=== PATIENT | male | born 1985 | race Hispanic/Latino ===

== ENCOUNTER 2017-10-29 21:17 | Inpatient (IN) | payer SELFPAY ==
[~2017-10-29] VITALS: Ht 175.3 cm; Wt 88.9 kg
[2017-10-29] MEDS ORDERED: DIATRIZOATE MEGL/DIATRIZOA SOD 30 ML BTL PO ONE (22:05)
[2017-10-29 22:27] LABS: BASOPHILS # (AUTO) 0.1 (0.0-0.1); BASOPHILS % 0.3 % (0.0-1.0); EOSINOPHILS % 0.1 % (0.0-6.0); HEMATOCRIT 37.7 % (38.2-49.6); HEMOGLOBIN 12.2 g/dL (14.0-18.0); LYMPHOCYTES # (AUTO) 1.6 (1.0-3.2); MEAN CORPUSCULAR HEMOGLOBIN 25.6 pg (28-32); MEAN CORPUSCULAR HGB CONC 32.4 g/dL (31-35); MEAN CORPUSCULAR VOLUME 79.2 fL (81-99); MONOCYTES # (AUTO) 0.9 (0.2-0.8); MONOCYTES % 5.1 % (4.4-11.3); NEUTROPHILS # (AUTO) 14.9 (2.1-6.9); PLATELET COUNT 410 x10e3/uL (140-360); RED BLOOD COUNT 4.76 x10e6/uL (4.3-5.7); RED CELL DISTRIBUTION WIDTH 13.7 % (11.7-14.4)
[2017-10-29 22:39] LABS: CLARITY,URINE CLOUDY (CLEAR); COLOR,URINE YELLOW (YELLOW); LEUKOCYTE ESTERASE ,URINE TRACE (NEGATIVE); NITRITE,URINE NEGATIVE (NEGATIVE); PROTEIN,URINE DIPSTICK 2+ (NEGATIVE)
[2017-10-29 22:40] LABS: BILIRUBIN,URINE NEGATIVE (NEGATIVE); KETONES,URINE NEGATIVE (NEGATIVE); URINE UROBILINOGEN 0.2 mg/dL (0.2 - 1)
[2017-10-29] MEDS ORDERED: ONDANSETRON HCL INJ 2 MG/ML VIAL IV STA (22:46)
[2017-10-29 22:51] LABS: RBC,URINE 0-5 /HPF (0-5); WBC,URINE (MAN) >50 /HPF (0-5)
[2017-10-29 22:52] LABS: BACTERIA,URINE RARE /HPF; EPITHELIAL CELLS,URINE RARE /LPF
[2017-10-29 22:54] LABS: ALANINE AMINOTRANSFERASE 7 IU/L (0-55); ALBUMIN 3.3 g/dL (3.5-5.0); ALBUMIN/GLOBULIN RATIO 0.7 (0.8-2.0); ALKALINE PHOSPHATASE 66 IU/L (40-150); AMYLASE 41 U/L (25-125); ANION GAP 14.3 mmol/L (8-16); BLOOD UREA NITROGEN 9 mg/dL (7-26); BUN/CREATININE RATIO 12 (6-25); CALCIUM 9.6 mg/dL (8.4-10.2); CARBON DIOXIDE 26 mmol/L (22-29); CHLORIDE 101 mmol/L (98-107); CREATININE, SERUM 0.78 mg/dL (0.72-1.25); EST GLOMERULAR FILTRATION RATE > 60 ML/MIN (60-); GLUCOSE 121 mg/dL (74-118); LIPASE < 4 U/L (8-78); POTASSIUM 3.3 mmol/L (3.5-5.1); SODIUM 138 mmol/L (136-145)
[2017-10-29] MEDS ORDERED: SODIUM CHLORIDE 0.9% 50ML 50 ML ONE (23:16)
[2017-10-29] MEDS ORDERED: IOPAMIDOL 370 MG/ML 200 ML INFUS..BTL INJ ONE (23:17)
[2017-10-29] MEDS ORDERED: KETOROLAC TROMETHAMINE 30 MG/ML VIAL IV STA (23:49)
--- NOTE | 2017-10-30 00:08 | Diagnostic Imaging Report ---
EXAM: CT ABDOMEN AND PELVIS with IV CONTRAST DATE: 10/29/2017 10:00 PM Time stamp on Exam: 2330 hours INDICATION: Left lower quadrant pain COMPARISON: CT of the abdomen and pelvis September 04, 2016 TECHNIQUE: The abdomen and pelvis were scanned using a multidetector helical scanner. Coronal and sagittal reformations were obtained. Routine protocol performed. IV Contrast: 100 cc Isovue-370 Oral Contrast: Gastrografin CTDIvol has been reviewed. It is below the limits set by the Radiation Protocol Committee (RPC). FINDINGS: LOWER THORAX: No consolidations LIVER: No masses BILIARY: The gallbladder is unremarkable. No ductal dilation. SPLEEN: No masses PANCREAS: No masses ADRENALS: No nodules KIDNEYS: Symmetric perfusion. No enhancing masses. No hydronephrosis. GI TRACT: Diffuse irregular wall thickening of the mid to distal descending colon and proximal sigmoid colon. Diffuse surrounding inflammation. These findings have worsened since the last CT. There is no free air, however there is a fistulous communication with the left transverse abdominis muscle. There is also a fistulous connection with the dome of the bladder. VESSELS: Unremarkable PERITONEUM/RETROPERITONEUM: Small amount of free fluid around the left colon and in the pelvis. LYMPH NODES: Subcentimeter left pericolonic lymph nodes. REPRODUCTIVE ORGANS: Unremarkable BLADDER: Abnormal thickening and inflammation of the bladder dome with punctate focus of air within the bladder. BONES: No suspicious bone lesions. IMPRESSION: Severe diverticulitis involving the descending and sigmoid colon, progressed since prior exam. At the site of a prior contained perforation of the mid descending colon, there is an irregular abscess that has formed a fistulous connection with the left transverse abdominis muscle. There is also a colovesical fistula involving the bladder dome. Signed by: Dr. Norah Marti M.D. on 10/30/2017 12:05 AM
[2017-10-30] MEDS: METRONIDAZOLE 500MG/NS 100ML 100 ML IV SCH ×5 (00:46→23:27)
[2017-10-30] MEDS ORDERED: KCL 20MEQ/.9 SOD CHL 1,000 ML IV ONE (01:00)
[2017-10-30] MEDS ORDERED: LEVOFLOXACIN 500MG/D5W 100ML 100 ML IV SCH (01:00)
[2017-10-30] MEDS: PIPER-TAZ 3.375 GM 50 ML IV SCH ×4 (02:19→21:00)
[2017-10-30 08:30] VITALS: BP 152/92
[2017-10-30] MEDS ORDERED: BENICAR20 MG PO (08:45)
[2017-10-30 09:00] VITALS: BP 152/92
[2017-10-30] MEDS: ONDANSETRON HCL INJ 2 MG/ML VIAL IV PRN ×2 (09:43→20:33)
[2017-10-30] MEDS: MORPHINE SULFATE 2 MG/ML SYR IV PRN ×2 (09:43→20:33)
[2017-10-30 12:00] VITALS: BP 145/80
[2017-10-30 16:27] VITALS: BP 143/85
--- NOTE | 2017-10-30 17:40 | History and Physical ---
CHIEF COMPLAINT: Abdominal pain and possible colovesical fistula and perforated diverticulitis. HISTORY OF PRESENT ILLNESS: Patient is a 32-year-old male who has diverticular disease for the past 12 years or so. The patient just recently, approximately 5 to 6 weeks ago, was hospitalized at [facility]. At that time he had diverticulitis and was given antibiotics. Patient questionably whether he has a perforation or not at the time, and the patient did not know but he came in this time here for the 1st time with severe diverticulitis involving the descending and the sigmoid colon, progressive. It is also at the site of prior contained perforation of the mid descending colon, and there is an irregular abscess that formed a fistulous connection with the left transverse abdominus muscle. There is also a colovesical fistula involving the urinary bladder dome. The patient is otherwise stable at this time. He did not have any high-grade fever. The T-max was 99.1. Blood pressure stable. White cell count 17.5 thousand. The patient is admitted and antibiotics given. Consultation with the surgeon nurse infection control, Dr. Tomás Salcedo. PAST MEDICAL HISTORY: Diverticular disease with previous perforation. SOCIAL HISTORY: The patient does not smoke or use alcohol. No recreational drug use. ALLERGIES: TO NO KNOWN ALLERGY. HOME MEDICATIONS: None. PHYSICAL EXAMINATION: VITAL SIGNS: Temperature, T-max 99. Blood pressure 127/70. Pulse rate is 57. Respiration . GENERAL: The patient is in no acute distress. He is awake. HEENT: Normocephalic, atraumatic, anicteric. NECK: Supple grossly. PULMONARY: Clear. CARDIOVASCULAR: Regular rate and rhythm. ABDOMEN: Tenderness with some guarding. EXTREMITIES: No cyanosis or edema. NEUROLOGIC: No focal deficit. LABORATORY: Sodium is 138, potassium 3.3, chloride 101, bicarb 26, BUN 9, creatinine 0.8, glucose is 121. Amylase and lipase normal. WBC is 17.5. Hemoglobin 12.2. Hematocrit 37.7. Platelets are 410. CT SCAN OF ABDOMEN AND PELVIS: As mentioned above. A perforated diverticulitis involving descending and the sigmoid colon. There is also a possible colovesicular fistula involving the urinary bladder dome. IMPRESSION: 1. Acute on chronic diverticulitis associated with a perforation contained area in the descending colon associated with now a colovesicular fistula involving the urinary bladder. 2. Leukocytosis. 3. Abdominal pain. PLAN: Continue with IV antibiotics, IV fluids, medication. Will monitor the patient closely. Continue with the management, and we will follow up with Dr. Tomás Salcedo's recommendations. Job#: [id number] EV
[2017-10-30] MEDS: OLMESARTAN 20 MG TAB PO SCH (17:43)
[2017-10-30] MEDS: POTASSIUM CHLORIDE 40 MEQ in DEXTROSE 5%/0.45% SOD CHL 1,000 ML IV SCH (18:04)
[2017-10-30 20:00] VITALS: BP 153/85
[2017-10-30 20:34] VITALS: BP 153/85
[2017-10-30] MEDS: HYDROCODONE/APAP 7.5MG-325MG 1 EA TAB PO PRN (22:05)
[2017-10-31] VITALS (8 sets, daily range): BP systolic 121–139; BP diastolic 72–92
[2017-10-31] MEDS: POTASSIUM CHLORIDE 40 MEQ in DEXTROSE 5%/0.45% SOD CHL 1,000 ML IV SCH ×2 (04:12→10:00)
[2017-10-31] MEDS: METRONIDAZOLE 500MG/NS 100ML 100 ML IV SCH ×3 (05:20→18:02)
[2017-10-31 05:31] LABS: BASOPHILS % 0.2 % (0.0-1.0); EOSINOPHILS # (AUTO) 0.1 (0.0-0.4); EOSINOPHILS % 0.5 % (0.0-6.0); HEMATOCRIT 33.1 % (38.2-49.6); HEMOGLOBIN 10.5 g/dL (14.0-18.0); LYMPHOCYTES # (AUTO) 1.2 (1.0-3.2); LYMPHOCYTES % 10.9 % (18.0-39.1); MEAN CORPUSCULAR HEMOGLOBIN 25.7 pg (28-32); MEAN CORPUSCULAR HGB CONC 31.7 g/dL (31-35); MEAN CORPUSCULAR VOLUME 80.9 fL (81-99); MONOCYTES # (AUTO) 1.1 (0.2-0.8); MONOCYTES % 9.8 % (4.4-11.3); NEUTROPHILS # (AUTO) 8.5 (2.1-6.9); PLATELET COUNT 268 x10e3/uL (140-360); RED BLOOD COUNT 4.09 x10e6/uL (4.3-5.7)
[2017-10-31 05:54] LABS: ALANINE AMINOTRANSFERASE 6 IU/L (0-55); ALBUMIN 2.6 g/dL (3.5-5.0); ALBUMIN/GLOBULIN RATIO 0.6 (0.8-2.0); ALKALINE PHOSPHATASE 56 IU/L (40-150); ANION GAP 12.5 mmol/L (8-16); BLOOD UREA NITROGEN 9 mg/dL (7-26); BUN/CREATININE RATIO 11 (6-25); CALCIUM 8.9 mg/dL (8.4-10.2); CARBON DIOXIDE 27 mmol/L (22-29); CHLORIDE 103 mmol/L (98-107); CREATININE, SERUM 0.82 mg/dL (0.72-1.25); EST GLOMERULAR FILTRATION RATE > 60 ML/MIN (60-); GLUCOSE 112 mg/dL (74-118); POTASSIUM 3.5 mmol/L (3.5-5.1); SODIUM 139 mmol/L (136-145)
[2017-10-31] MEDS: PIPER-TAZ 3.375 GM 50 ML IV SCH ×3 (06:48→22:17)
[2017-10-31] MEDS: HYDROCODONE/APAP 7.5MG-325MG 1 EA TAB PO PRN ×2 (06:48→18:02)
[2017-10-31] MEDS: OLMESARTAN 20 MG TAB PO SCH (09:00)
[2017-10-31] MEDS: MORPHINE SULFATE INJ 4 MG/ML INJ IV PRN (12:03)
[2017-11-01] VITALS (8 sets, daily range): BP systolic 137–157; BP diastolic 89–100
[2017-11-01] MEDS: METRONIDAZOLE 500MG/NS 100ML 100 ML IV SCH ×4 (00:10→17:07)
[2017-11-01] MEDS: POTASSIUM CHLORIDE 40 MEQ in DEXTROSE 5%/0.45% SOD CHL 1,000 ML IV SCH ×2 (01:57→16:08)
[2017-11-01] MEDS: PIPER-TAZ 3.375 GM 50 ML IV SCH ×3 (05:18→21:56)
[2017-11-01 05:32] LABS: BASOPHILS % 0.4 % (0.0-1.0); EOSINOPHILS # (AUTO) 0.1 (0.0-0.4); EOSINOPHILS % 0.8 % (0.0-6.0); HEMATOCRIT 32.9 % (38.2-49.6); HEMOGLOBIN 10.4 g/dL (14.0-18.0); LYMPHOCYTES # (AUTO) 1.3 (1.0-3.2); LYMPHOCYTES % 16.8 % (18.0-39.1); MEAN CORPUSCULAR HEMOGLOBIN 25.8 pg (28-32); MEAN CORPUSCULAR HGB CONC 31.6 g/dL (31-35); MEAN CORPUSCULAR VOLUME 81.6 fL (81-99); MONOCYTES # (AUTO) 0.6 (0.2-0.8); MONOCYTES % 8.1 % (4.4-11.3); NEUTROPHILS # (AUTO) 5.7 (2.1-6.9); NEUTROPHILS % 73.3 % (38.7-80.0); PLATELET COUNT 269 x10e3/uL (140-360); RED BLOOD COUNT 4.03 x10e6/uL (4.3-5.7)
[2017-11-01 05:57] LABS: ANION GAP 14.8 mmol/L (8-16); BLOOD UREA NITROGEN 6 mg/dL (7-26); BUN/CREATININE RATIO 8 (6-25); CARBON DIOXIDE 23 mmol/L (22-29); CHLORIDE 105 mmol/L (98-107); CREATININE, SERUM 0.72 mg/dL (0.72-1.25); EST GLOMERULAR FILTRATION RATE > 60 ML/MIN (60-); GLUCOSE 90 mg/dL (74-118); POTASSIUM 3.8 mmol/L (3.5-5.1); SODIUM 139 mmol/L (136-145)
[2017-11-01] MEDS: OLMESARTAN 20 MG TAB PO SCH (08:18)
[2017-11-01] MEDS: HYDROCODONE/APAP 7.5MG-325MG 1 EA TAB PO PRN ×2 (13:20→20:14)
[2017-11-02] VITALS (7 sets, daily range): BP systolic 145–171; BP diastolic 78–100
[2017-11-02] MEDS: METRONIDAZOLE 500MG/NS 100ML 100 ML IV SCH ×4 (00:14→16:59)
[2017-11-02] MEDS: PIPER-TAZ 3.375 GM 50 ML IV SCH ×2 (05:06→14:48)
[2017-11-02] MEDS: POTASSIUM CHLORIDE 40 MEQ in DEXTROSE 5%/0.45% SOD CHL 1,000 ML IV SCH (05:06)
[2017-11-02 05:47] LABS: BASOPHILS % 0.4 % (0.0-1.0); EOSINOPHILS # (AUTO) 0.1 (0.0-0.4); EOSINOPHILS % 1.2 % (0.0-6.0); HEMATOCRIT 34.1 % (38.2-49.6); HEMOGLOBIN 10.7 g/dL (14.0-18.0); LYMPHOCYTES # (AUTO) 1.1 (1.0-3.2); LYMPHOCYTES % 14.1 % (18.0-39.1); MEAN CORPUSCULAR HEMOGLOBIN 25.4 pg (28-32); MEAN CORPUSCULAR HGB CONC 31.4 g/dL (31-35); MEAN CORPUSCULAR VOLUME 80.8 fL (81-99); MONOCYTES # (AUTO) 0.6 (0.2-0.8); MONOCYTES % 7.8 % (4.4-11.3); NEUTROPHILS # (AUTO) 5.9 (2.1-6.9); NEUTROPHILS % 75.9 % (38.7-80.0); PLATELET COUNT 354 x10e3/uL (140-360); RED BLOOD COUNT 4.22 x10e6/uL (4.3-5.7)
[2017-11-02] MEDS: OLMESARTAN 20 MG TAB PO SCH (09:20)
[2017-11-02] MEDS: MORPHINE SULFATE INJ 4 MG/ML INJ IV PRN (13:47)
[2017-11-02] MEDS ORDERED: FLAGYL250 MG PO (17:13)
[2017-11-02] MEDS ORDERED: LEVAQUIN500 MG PO (17:13)
[2017-11-02] MEDS ORDERED: NAPROXEN250 MG PO (17:14)
[2017-11-02] MEDS ORDERED: phenergan PO (17:14)
--- NOTE | 2017-11-02 17:50 | Discharge Summary ---
FINAL DIAGNOSIS: Chronic diverticulitis associated with infection, severe diverticulitis. CT scan showed descending colon and sigmoid colon with an area that contained perforation of the mid descending colon and irregular abscess that was forming a fistula connecting the left transverse abdominis muscle and also a colovesical fistula involving the urinary bladder dome. SUMMARY: Patient is a young 32-year-old male who has diverticular disease, severe diverticulitis for many years. The patient has chronic problem. He has been at [facility] and then subsequently discharged home with oral antibiotics. The patient came to [facility] because he was having pain and fever. The finding on the CT scan discussed with the patient at length. The patient absolutely did not want any surgery as per Dr. Tomás Salcedo. For now the patient wants to continue with antibiotics. He will need to have his management with respect to surgical intervention. Today the patient absolutely wanted to go home because he does not want to stay in the hospital. It is his choice, and the patient will be discharged home with 7 days antibiotics, Flagyl, Levaquin. Phenergan as needed for nausea and vomiting and naproxen for pain. The patient will need to follow with his surgeon of choice. Again, this is not the 1st time patient had this problem. He had multiple avenues of having this problem taken care of, and the patient is well aware of the complications that arise. Discussed with the patient as planned already. The patient will be discharged home today per his wishes. Job#: [id number] RADHA
== END 2017-11-02 18:20 | disposition home or self-care (01) | DRG 699 ==
LOC: ER 21:17 → ERHOLD 10-30 00:51 → MED/SURG3 10-30 08:50
PROVIDERS: ADMIT Internal Medicine; ATTEND Internal Medicine
DX: N32.1 Vesicointestinal fistula (principal); K57.20 Diverticulitis of large intestine with perforation and abscess without bleeding; D72.829 Elevated white blood cell count, unspecified
CPT/HCPCS: 36415; 74177; 80048; 80053; 81001; 82150; 83690; 85025; 96361; 99284; J1885; J1956; J2270; J2405; J2543; J3480; Q9967

== ENCOUNTER 2018-01-17 01:52 | Inpatient (IN) | payer SELFPAY ==
[~2018-01-17] VITALS: Ht 175.3 cm; Wt 83.5 kg
[~2018-01-17 01:52] MED LIST: BENICAR20 MG PO; FLAGYL250 MG PO; LEVAQUIN500 MG PO; NAPROXEN250 MG PO; phenergan PO
[2018-01-17] MEDS ORDERED: SODIUM CHLORIDE 0.9% 1000ML 1,000 ML IV STA (01:55)
--- OUTSIDE RECORDS SUMMARY | 2018-01-17 01:55 | XMS REPORT | Clinical Summary ---
Author Author [facility] Organization [facility] Address Unknown Phone Unavailable Care Team Providers Care Stenographer Secretary Name Role Phone PCP Unavailable Allergies No Known Allergies Current Medications Prescription Sig. Disp. Refills Start End Date Status Date traMADol (ULTRAM) 50 mg Take 1 tablet by mouth 30 tablet 0 06/11/19 Active tabletIndications: every 6 hours as needed 13 Diverticulitis for Pain. Olmesartan (BENICAR) 5 mg Take 10 mg by mouth daily Active tabletIndications: high Started August 2017 . blood pressure acetaminophen (TYLENOL) Take 2 tablets by mouth 30 tablet 0 12/02/19 Active 325 mg tabletIndications: every 6 hours as needed 18 Diverticulitis for Pain. traMADol (ULTRAM) 50 mg Take 2 tablets by mouth 30 tablet 0 12/02/19 Active tabletIndications: every 6 hours as needed 18 Diverticulitis for Pain. metroNIDAZOLE (FLAGYL) Take 1 tablet by mouth 3 21 tablet 0 12/02/19 12/10/19 500 mg tabletIndications: times daily for 7 days. 18 18 Diverticulitis ciprofloxacin HCl (CIPRO) Take 1 tablet by mouth 2 20 tablet 0 12/02/19 12/02/19 Discontin 500 mg tabletIndications: times daily for 10 days. 18 18 ued Diverticulitis docusate sodium (COLACE) Take 1 capsule by mouth 10 capsule 0 12/03/19 12/13/19 100 mg daily for 10 days. 18 18 capsuleIndications: Diverticulitis fluconazole (DIFLUCAN) Take 1 tablet by mouth 7 tablet 0 12/02/19 12/10/19 100 mg tabletIndications: daily for 7 days. 18 18 Diverticulitis ciprofloxacin HCl (CIPRO) Take 1 tablet by mouth 2 20 tablet 0 12/02/19 12/13/19 500 mg tabletIndications: times daily for 10 days. 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 Encounters Date Type Specialty Care Team Description 12/02/2017 Pharmacy Visit 11/22/2017 [facility] Oumar Elizondo MD Left lower quadrant pain - Encounter Flora Hernandez MD (Primary Dx); 12/01/2017 Ambrocio Patel MD Colovesical fistula; Diverticulitis after 01/16/2017 Social History Tobacco Use Types Packs/Day Years Used Date Former Smoker Smokeless Tobacco: Never Used Alcohol Use Drinks/Week oz/Week Comments No Sex Assigned at Date Recorded Not on file Last Filed Vital Signs Vital Sign Reading Time Taken Blood Pressure 156/90 12/01/2017 7:00 PM CDT Pulse 98 12/01/2017 7:00 PM CDT Temperature 36.8 C (98.2 F) 12/01/2017 7:00 PM CDT Respiratory Rate 18 12/01/2017 7:00 PM CDT Oxygen Saturation 98% 12/01/2017 7:00 PM CDT Inhaled Oxygen - - Concentration Weight 83.5 kg (184 lb) 11/22/2017 4:33 PM CDT Height 175.3 cm (5' 9") 11/22/2017 4:33 PM CDT Body Mass Index 27.17 11/22/2017 4:33 PM CDT Plan of Treatment Date Type Specialty Care Team Description 01/22/2018 Office Visit General Surgery Oh Nash MD Department of Surgery-[facility] [address] [place] [address] [phone] Kasandra Gutierrez PA [address] [facility] [address] [place] [address] [phone] 02/05/2018 Office Visit Gastroenterology Health Maintenance Due Date Last Done Comments IMM Influenza Seasonal 12/03/2017 Oct to May (>/=19 yrs) Procedures Procedure Name Priority Date/Time Associated Diagnosis Comments GLUCOSE POC Routine 12/01/2017 Results for this 5:11 PM CDT procedure are in the results section. GLUCOSE POC Routine 12/01/2017 Results for this 12:41 PM CDT procedure are in the results section. GLUCOSE POC Routine 12/01/2017 Results for this 8:49 AM CDT procedure are in the results section. GLUCOSE POC Routine 12/01/2017 Results for this 6:40 AM CDT procedure are in the results section. PHOSPHORUS Routine 12/01/2017 Results for this 4:47 AM CDT procedure are in the results section. MAGNESIUM Routine 12/01/2017 Results for this 4:47 AM CDT procedure are in the results section. CBC/DIFF Routine 12/01/2017 Results for this 4:47 AM CDT procedure are in the results section. BASIC METABOLIC PANEL Routine 12/01/2017 Results for this 4:47 AM CDT procedure are in the results section. GLUCOSE POC Routine 12/01/2017 Results for this 12:15 AM CDT procedure are in the results section. GLUCOSE POC Routine 11/30/2017 Results for this 12:07 PM CDT procedure are in the results section. GLUCOSE POC Routine 11/30/2017 Results for this 6:39 AM CDT procedure are in the results section. PHOSPHORUS Routine 11/30/2017 Results for this 5:00 AM CDT procedure are in the results section. MAGNESIUM Routine 11/30/2017 Results for this 5:00 AM CDT procedure are in the results section. CBC/DIFF Routine 11/30/2017 Results for this 5:00 AM CDT procedure are in the results section. BASIC METABOLIC PANEL Routine 11/30/2017 Results for this 5:00 AM CDT procedure are in the results section. GLUCOSE POC Routine 11/30/2017 Results for this 12:52 AM CDT procedure are in the results section. GLUCOSE POC Routine 11/29/2017 Results for this 6:26 PM CDT procedure are in the results section. GLUCOSE POC Routine 11/29/2017 Results for this 12:23 PM CDT procedure are in the results section. GLUCOSE POC Routine 11/29/2017 Results for this 6:34 AM CDT procedure are in the results section. PREALBUMIN Routine 11/29/2017 Results for this 4:50 AM CDT procedure are in the results section. PHOSPHORUS Routine 11/29/2017 Results for this 4:50 AM CDT procedure are in the results section. MAGNESIUM Routine 11/29/2017 Results for this 4:50 AM CDT procedure are in the results section. CBC/DIFF Routine 11/29/2017 Results for this 4:50 AM CDT procedure are in the results section. BASIC METABOLIC PANEL Routine 11/29/2017 Results for this 4:50 AM CDT procedure are in the results section. GLUCOSE POC Routine 11/29/2017 Results for this 12:45 AM CDT procedure are in the results section. GLUCOSE POC Routine 11/28/2017 Results for this 6:02 PM CDT procedure are in the results section. GLUCOSE POC Routine 11/28/2017 Results for this 12:16 PM CDT procedure are in the results section. GLUCOSE POC Routine 11/28/2017 Results for this 5:23 AM CDT procedure are in the results section. PHOSPHORUS Routine 11/28/2017 Results for this 3:15 AM CDT procedure are in the results section. MAGNESIUM Routine 11/28/2017 Results for this 3:15 AM CDT procedure are in the results section. CBC/DIFF Routine 11/28/2017 Results for this 3:15 AM CDT procedure are in the results section. BASIC METABOLIC PANEL Routine 11/28/2017 Results for this 3:15 AM CDT procedure are in the results section. GLUCOSE POC Routine 11/27/2017 Results for this 11:12 PM CDT procedure are in the results section. GLUCOSE POC Routine 11/27/2017 Results for this 4:55 PM CDT procedure are in the results section. GLUCOSE POC Routine 11/27/2017 Results for this 12:30 PM CDT procedure are in the results section. GLUCOSE POC Routine 11/27/2017 Results for this 5:58 AM CDT procedure are in the results section. PHOSPHORUS Routine 11/27/2017 Results for this 3:30 AM CDT procedure are in the results section. MAGNESIUM Routine 11/27/2017 Results for this 3:30 AM CDT procedure are in the results section. CBC/DIFF Routine 11/27/2017 Results for this 3:30 AM CDT procedure are in the results section. BASIC METABOLIC PANEL Routine 11/27/2017 Results for this 3:30 AM CDT procedure are in the results section. GLUCOSE POC Routine 11/26/2017 Results for this 11:41 PM CDT procedure are in the results section. GLUCOSE POC Routine 11/26/2017 Results for this 5:39 PM CDT procedure are in the results section. GLUCOSE POC Routine 11/26/2017 Results for this 12:36 PM CDT procedure are in the results section. GLUCOSE POC Routine 11/26/2017 Results for this 6:06 AM CDT procedure are in the results section. PREALBUMIN Routine 11/26/2017 Results for this 4:20 AM CDT procedure are in the results section. PHOSPHORUS Routine 11/26/2017 Results for this 4:20 AM CDT procedure are in the results section. MAGNESIUM Routine 11/26/2017 Results for this 4:20 AM CDT procedure are in the results section. CBC/DIFF Routine 11/26/2017 Results for this 4:20 AM CDT procedure are in the results section. BASIC METABOLIC PANEL Routine 11/26/2017 Results for this 4:20 AM CDT procedure are in the results section. GLUCOSE POC Routine 11/25/2017 Results for this 11:59 PM CDT procedure are in the results section. CT ABDOMEN AND PELVIS W SOPHIE 11/25/2017 Colovesical fistula Results for this CONTRAST - ENTEROGRAPHY 7:35 PM CDT procedure are in the results section. GLUCOSE POC Routine 11/25/2017 Results for this 5:17 PM CDT procedure are in the results section. GLUCOSE POC Routine 11/25/2017 Results for this 12:23 PM CDT procedure are in the results section. GLUCOSE POC Routine 11/25/2017 Results for this 6:43 AM CDT procedure are in the results section. PHOSPHORUS Routine 11/25/2017 Results for this 4:20 AM CDT procedure are in the results section. MAGNESIUM Routine 11/25/2017 Results for this 4:20 AM CDT procedure are in the results section. CBC/DIFF Routine 11/25/2017 Results for this 4:20 AM CDT procedure are in the results section. BASIC METABOLIC PANEL Routine 11/25/2017 Results for this 4:20 AM CDT procedure are in the results section. GLUCOSE POC Routine 11/25/2017 Results for this 12:29 AM CDT procedure are in the results section. CELIAC DISEASE Routine 11/24/2017 Results for this 5:35 PM CDT procedure are in the results section. VIT D, 25-HYDROXY Routine 11/24/2017 Results for this 5:35 PM CDT procedure are in the results section. FERRITIN Routine 11/24/2017 Results for this 5:35 PM CDT procedure are in the results section. IRON PROFILE Routine 11/24/2017 Results for this 5:35 PM CDT procedure are in the results section. SED RATE Routine 11/24/2017 Results for this 5:35 PM CDT procedure are in the results section. GLUCOSE POC Routine 11/24/2017 Results for this 5:16 PM CDT procedure are in the results section. PHOSPHORUS STAT 11/24/2017 Results for this 4:25 AM CDT procedure are in the results section. MAGNESIUM STAT 11/24/2017 Results for this 4:25 AM CDT procedure are in the results section. CBC/DIFF STAT 11/24/2017 Results for this 4:25 AM CDT procedure are in the results section. BASIC METABOLIC PANEL STAT 11/24/2017 Results for this 4:25 AM CDT procedure are in the results section. CT ABDOMEN AND PELVIS Routine 11/23/2017 Diverticulitis Results for this CONTRAST 8:41 PM CDT procedure are in the results section. NUTRITION CONSULT STAT 11/23/2017 ASSESSMENT 12:38 PM CDT XRAY ABDOMEN 1 VIEW Routine 11/23/2017 Left lower quadrant pain Results for this 5:24 AM CDT procedure are in the results section. PREALBUMIN Routine 11/23/2017 Results for this 3:20 AM CDT procedure are in the results section. PHOSPHORUS Routine 11/23/2017 Results for this 3:20 AM CDT procedure are in the results section. MAGNESIUM Routine 11/23/2017 Results for this 3:20 AM CDT procedure are in the results section. CBC/DIFF Routine 11/23/2017 Results for this 3:20 AM CDT procedure are in the results section. BASIC METABOLIC PANEL Routine 11/23/2017 Results for this 3:20 AM CDT procedure are in the results section. XRAY ABDOMEN 1 VIEW STAT 11/22/2017 Left lower quadrant pain Results for this 5:30 PM CDT procedure are in the results section. CRP, HIGH SENS STAT 11/22/2017 Results for this 3:40 PM CDT procedure are in the results section. PREALBUMIN STAT 11/22/2017 Results for this 3:40 PM CDT procedure are in the results section. URINE CULTURE STAT 11/22/2017 Results for this 11:31 AM CDT procedure are in the results section. CT ABDOMEN AND PELVIS STAT 11/22/2017 Left lower quadrant pain Results for this CONTRAST 9:49 AM CDT procedure are in the results section. BMP POC Routine 11/21/2017 Results for this 10:26 PM CDT procedure are in the results section. 12 LEAD EKG Routine 11/21/2017 Results for this 10:20 PM CDT procedure are in the results section. HIV-1/HIV-2 ROUTINE STAT 11/21/2017 Results for this SCREENING 10:19 PM CDT procedure are in the results section. UA CHEMISTRIES STAT 11/21/2017 Results for this 10:19 PM CDT procedure are in the results section. LIPASE STAT 11/21/2017 Results for this 10:19 PM CDT procedure are in the results section. LIVER PROFILE STAT 11/21/2017 Results for this 10:19 PM CDT procedure are in the results section. CBC/DIFF STAT 11/21/2017 Results for this 10:19 PM CDT procedure are in the results section. after 01/16/2017 Results * GLUCOSE POC (12/01/2017 5:11 PM) Only the most recent of 29 results within the time period is included. Glucose POC 93 74 - 106 mg/dL BT MAIN-STATION 1 Performing Organization Address [facility] Phone Number MISYS BT MAIN-[facility]ATION 1 * PHOSPHORUS (12/01/2017 4:47 AM) Only the most recent of 9 results within the time period is included. Phosphorus 3.9 2.5 - 5.0 mg/dL BT MAIN-STATION 1 Specimen Blood Performing Organization Address [facility] Phone Number MISYS BT MAIN-STATION 1 * MAGNESIUM (12/01/2017 4:47 AM) Only the most recent of 9 results within the time period is included. Magnesium 1.9 1.9 - 2.7 mg/dL BT MAIN-STATION 1 Specimen Blood Performing Organization Address [facility] Phone Number MISYS BT MAIN-STATION 1 * CBC/DIFF (12/01/2017 4:47 AM) Only the most recent of 10 results within the time period is included. WBC 11.2 4.5 - 12.0 K/uL BT MAIN-STATION 2 RBC 4.22 (L) 4.60 - 6.20 M/uL BT MAIN-STATION 2 Hemoglobin 10.6 (L) 14.0 - 18.0 g/dL BT MAIN-STATION 2 Hematocrit 35.0 (L) 40.0 - 54.0 % BT MAIN-[facility] 2 MCV 83 82 - 92 fL BT MAIN[facility] 2 MCH 25.1 (L) 27.0 - 31.0 pg BT MAIN-[facility]ATION 2 MCHC 30.3 (L) 32.0 - 36.0 g/dL BT MAIN-[facility] 2 RDW 43.2 35.1 - 43.9 fL BT MAIN-[facility] 2 Platelet 432 (H) 150 - 400 K/uL BT MAIN-[facility]ATION 2 Mean Platelet Volume 9.5 9.4 - 12.4 fL BT MAIN-[facility] 2 Percent NRBC 0.0 BT MAIN-[facility]ATION 2 Absolute NRBC 0.00 BT MAIN[facility] 2 Neutrophil 73.8 (H) 34.0 - 67.9 % BT [facility] 2 Lymphocyte 14.8 (L) 21.8 - 50.0 % BT [facility] 2 Monocyte 8.0 5.3 - 12.0 % BT [facility] 2 Eosinophil 1.2 0.8 - 5.0 % BT [facility] 2 Basophil 0.7 0.2 - 1.2 % BT MAIN[facility] 2 Pct Immat Gran 1.5 (H) 0.0 - 0.5 BT MAIN-[facility]ATION 2 Neutrophil, Abs 8.25 (H) 1.78 - 5.36 K/uL BT MAIN-[facility]ATION 2 Lymphocyte, Abs 1.65 1.32 - 3.57 K/uL BT MAIN-STATION 2 Monocyte, Abs 0.89 (H) 0.30 - 0.82 K/uL BT MAIN-[facility]ATION 2 Eosinophil, Abs 0.13 0.04 - 0.54 K/uL BT MAIN-[facility]ATION 2 Basophil, Abs 0.08 0.01 - 0.08 K/uL BT MAIN-[facility]ATION 2 Absol Immat Gran 0.17 (H) 0.00 - 0.03 K/uL BT MAIN-[facility]ATION 2 Specimen Blood Performing Organization Address City/State/Zipcode Phone Number MISYS BT [facility]IN-[facility] 2 * BASIC METABOLIC PANEL (12/01/2017 4:47 AM) Only the most recent of 9 results within the time period is included. CO2 28 21 - 31 mmol/L BT [facility]IN-[facility] 1 Chloride 99 98 - 107 mmol/L BT [facility] 1 Potassium 3.7 3.5 - 5.1 mmol/L BT [facility] 1 Sodium 136 136 - 145 mmol/L BT [facility] 1 Glucose 115 (H) 70 - 110 mg/dL BT [facility] 1 Urea Nitrogen 14 7 - 25 mg/dL BT [facility] 1 Creatinine 0.50 (L) 0.7 - 1.3 mg/dL BT [facility] 1 Anion Gap 9 BT [facility] 1 Calcium 8.8 8.6 - 10.3 mg/dL BT [facility] 1 GFR, Estimated >60 mL/min/1.73 m2 BT [facility]IN[facility] 1 GFR, Estim, Afr-Am >60 mL/min/1.73 m2 BT [facility]IN[facility] 1 Specimen Blood Performing Organization Address [facility] [place] Phone Number MISYS BT MAIN-STATION 1 * PREALBUMIN (11/29/2017 4:50 AM) Only the most recent of 4 results within the time period is included. Prealbumin 14.7 (L) 17 - 34 mg/dL BT MAIN-STATION 1 Performing Organization Address [facility] [place] Phone Number MISYS BT MAIN-STATION 1 * CT ABDOMEN AND PELVIS W CONTRAST - ENTEROGRAPHY (11/25/2017 7:35 PM) Impressions Performed At IMPRESSION: SMS 1. Stable extensive inflammatory changes related to perforated diverticulitis of the descending colon, complicated by multiple abscesses, which are marginally decreased in size. 2. Stable associated mild bilateral hydroureteronephrosis related to inflammatory change in the pelvis and reactive thickening of the bladder. 3. No evidence of fistulous connection or active Crohn's disease. If the report is "FINALIZED" it indicates that the attending/staff radiologist has reviewed the images and agrees with the resident's interpretation. Dictated By: Juan José Yañez MD, 11/25/2017 8:07 PM I have reviewed the study and agree with the findings in this report. Signed By: Norah Marti MD, 11/25/2017 9:45 PM Narrative Performed At EXAM: CT Abdomen and Pelvis WITH contrast - Enterography SMS INDICATION: Pelvic inflammation and multiple abscesses. R/o Crohn's COMPARISON: CT of the abdomen and pelvis on 11/23/2017, 11/22/2017, and 05/12/2012 TECHNIQUE: Abdomen and pelvis were scanned utilizing a multidetector helical scanner from the lung base to the pubic symphysis after administration of IV contrast. Coronal and sagittal reformations were obtained. CT enterography was performed. Scan was performed during late portal venous. IV CONTRAST: 100 mL of Omnipaque 300 ORAL CONTRAST: 1000 mL of Volumen COMPLICATIONS: None RADIATION DOSE: Total DLP: 1762 mGy*cm Estimated effective dose: (DLP x 0.015 x size factor) mSv CTDIvol has been reviewed. It is below the limits set by the Radiation Protocol Committee (RPC). FINDINGS: LINES and TUBES: None. LOWER THORAX:Unremarkable HEPATOBILIARY: Enlarged liver measures 22 cm at the right midclavicular line. No focal hepatic lesions. No biliary ductal dilation. GALLBLADDER: Gallbladder sludge/stones. No wall thickening or pericholecystic fluid. SPLEEN: Enlarged spleen measures 13.5 cm. PANCREAS: No focal masses or ductal dilatation. ADRENALS: No adrenal nodules KIDNEYS/URETERS: Mild bilateral hydroureteronephrosis, stable with bilateral renal pelvises measuring up to 1.7 cm on the right and 1.8 cm on the left from previously 1.7 cm on the right and 1.8 cm on the left. Persistent mild urothelial wall thickening of the distal ureters, likely reactive to ongoing inflammation from the bowel and involvement of bladder. GI TRACT: Contrast opacifies the proximal colon to the rectum. Diverticulosis. Overall, similar appearance of the extensive mural thickening of the transverse to sigmoid colon and significant pericolonic inflammation to the proximal descending colon. Decreased size of the left lower pelvic abscess, now 4.8 x 4.3 x 4.1 cm from 5 x 4 x 4.8 cm (series 5, image 113). No extraluminal extravasation of oral contrast or evidence of fistulous connection. No additional abnormal bowel wall enhancement/thickening, edema or hyperenhancement of the mesentery to suggest active Crohn's disease. Appendix is normal. PELVIC ORGANS/BLADDER: Stable appearance of an underdistended bladder with significant wall thickening and inflammation, particularly at the dome, measuring up to 0.8 cm in thickness. The fluid collection mentioned above remains inseparable from the bladder dome. No contrast within the bladder. LYMPH NODES: Stable mesenteric and left para-aortic/retroperitoneal lymphadenopathy, measuring up to 0.8 cm in short axis. VESSELS: Unremarkable. PERITONEUM / RETROPERITONEUM: Extensive peritoneal inflammation along the descending colon extending into the pelvis. Not significantly changed multiple left hemiabdominal abscesses when accounting for differences in measuring technique; for example, the mesenteric abscess now measures 5.8 by 4.3 x 4.2 cm from previously 5.6 x 4.7 x 4.1 cm (series 5, image 85). Additional abscesses as above and along the undersurface of the left anterior abdominal wall along the descending colon are grossly unchanged. Stable multiple foci of contained areas of extraluminal gas. BONES: Mild multilevel degenerative changes of the spine, worse at L5-S1. SOFT TISSUES: Mild diffuse anasarca. Procedure Note Interface, Rad/Mammog In - 11/25/2017 9:50 PM CDT EXAM: CT Abdomen and Pelvis WITH contrast - Enterography INDICATION: Pelvic inflammation and multiple abscesses. R/o Crohn's COMPARISON: CT of the abdomen and pelvis on 11/23/2017, 11/22/2017, and 05/12/2012 TECHNIQUE: Abdomen and pelvis were scanned utilizing a multidetector helical scanner from the lung base to the pubic symphysis after administration of IV contrast. Coronal and sagittal reformations were obtained. CT enterography was performed. Scan was performed during late portal venous. IV CONTRAST: 100 mL of Omnipaque 300 ORAL CONTRAST: 1000 mL of Volumen COMPLICATIONS: None RADIATION DOSE: Total DLP: 1762 mGy*cm Estimated effective dose: (DLP x 0.015 x size factor) mSv CTDIvol has been reviewed. It is below the limits set by the Radiation Protocol Committee (RPC). FINDINGS: LINES and TUBES: None. LOWER THORAX: Unremarkable HEPATOBILIARY: Enlarged liver measures 22 cm at the right midclavicular line. No focal hepatic lesions. No biliary ductal dilation. GALLBLADDER: Gallbladder sludge/stones. No wall thickening or pericholecystic fluid. SPLEEN: Enlarged spleen measures 13.5 cm. PANCREAS: No focal masses or ductal dilatation. ADRENALS: No adrenal nodules KIDNEYS/URETERS: Mild bilateral hydroureteronephrosis, stable with bilateral renal pelvises measuring up to 1.7 cm on the right and 1.8 cm on the left from previously 1.7 cm on the right and 1.8 cm on the left. Persistent mild urothelial wall thickening of the distal ureters, likely reactive to ongoing inflammation from the bowel and involvement of bladder. GI TRACT: Contrast opacifies the proximal colon to the rectum. Diverticulosis. Overall, similar appearance of the extensive mural thickening of the transverse to sigmoid colon and significant pericolonic inflammation to the proximal descending colon. Decreased size of the left lower pelvic abscess, now 4.8 x 4.3 x 4.1 cm from 5 x 4 x 4.8 cm (series 5, image 113). No extraluminal extravasation of oral contrast or evidence of fistulous connection. No additional abnormal bowel wall enhancement/thickening, edema or hyperenhancement of the mesentery to suggest active Crohn's disease. Appendix is normal. PELVIC ORGANS/BLADDER: Stable appearance of an underdistended bladder with significant wall thickening and inflammation, particularly at the dome, measuring up to 0.8 cm in thickness. The fluid collection mentioned above remains inseparable from the bladder dome. No contrast within the bladder. LYMPH NODES: Stable mesenteric and left para-aortic/retroperitoneal lymphadenopathy, measuring up to 0.8 cm in short axis. VESSELS: Unremarkable. PERITONEUM / RETROPERITONEUM: Extensive peritoneal inflammation along the descending colon extending into the pelvis. Not significantly changed multiple left hemiabdominal abscesses when accounting for differences in measuring technique; for example, the mesenteric abscess now measures 5.8 by 4.3 x 4.2 cm from previously 5.6 x 4.7 x 4.1 cm (series 5, image 85). Additional abscesses as above and along the undersurface of the left anterior abdominal wall along the descending colon are grossly unchanged. Stable multiple foci of contained areas of extraluminal gas. BONES: Mild multilevel degenerative changes of the spine, worse at L5-S1. SOFT TISSUES: Mild diffuse anasarca. IMPRESSION IMPRESSION: 1. Stable extensive inflammatory changes related to perforated diverticulitis of the descending colon, complicated by multiple abscesses, which are marginally decreased in size. 2. Stable associated mild bilateral hydroureteronephrosis related to inflammatory change in the pelvis and reactive thickening of the bladder. 3. No evidence of fistulous connection or active Crohn's disease. If the report is "FINALIZED" it indicates that the attending/staff radiologist has reviewed the images and agrees with the resident's interpretation. Dictated By: Juan José Yañez MD, 11/25/2017 8:07 PM I have reviewed the study and agree with the findings in this report. Signed By: Norah Marti MD, 11/25/2017 9:45 PM Performing Organization Address City/State/Zipcode Phone Number SMS * VIT D, 25-HYDROXY (11/24/2017 5:35 PM) Vit D, 25-Hydroxy 22.6 (L) 30 - 100 ng/mL BT DIAGNOSTIC Comment: IMMUNOLOGY Vitamin D deficiency has been defined by the [place] of Medicine and Endocrine Society guideline as a level of serum 25-OH Vitamin D less than 20 ng/mL. The Endocrine Society further defines Vitamin D insufficiency as a level between 21 and 29 ng/mL and sufficiency as a level between 30 and 100 ng/mL. Performing Organization Address [facility] Phone Number [facility] DIAGNOSTIC IMMUNOLOGY * CELIAC DISEASE (11/24/2017 5:35 PM) Antigliadin Ab IgA 8 LABORATORY Reference range: 0 to 19 CORPORATION OF Unit: units FRANKIE (note) Negative 0 - 19 Weak Positive 20 - 30 Moderate to Strong Positive >30 Antigliadin Ab IgG 2 LABORATORY Reference range: 0 to 19 CORPORATION OF Unit: units FRANKIE (note) Negative 0 - 19 Weak Positive 20 - 30 Moderate to Strong Positive >30 t-Transglutam IgA <2 LABORATORY Reference range: 0 to 3 CORPORATION OF Unit: U/mL FRANKIE (note) Negative0 -3 Weak Positive 4 - 10 Positive >10 Tissue Transglutaminase (tTG) has been identified as the endomysial antigen.Studies have demonstr- ated that endomysial IgA antibodies have over 99% specificity for gluten sensitive enteropathy. t-Transglutam IgG <2 LABORATORY Reference range: 0 to 5 CORPORATION OF Unit: U/mL FRANKIE (note) Negative0 - 5 Weak Positive 6 - 9 Positive >9 Endomysial Ab IgA Negative LABORATORY Reference range: Negative CORPORATION OF FRANKIE IgA Qn. 278 LABORATORY Reference range: 90 to 386 CORPORATION OF Unit: mg/dL FRANKIE Specimen Blood Performing Organization Address [facility] [place] Phone Number [employer] [facility] OF [address] [place], [place] [id number] FRANKIE 145 * FERRITIN (11/24/2017 5:35 PM) Ferritin 632.90 (H) 23.9 - 336.2 ng/mL BT MAIN-STATION 1 Specimen Blood Performing Organization Address [facility] [place] Phone Number [employer] BT MAIN-STATION 1 * SED RATE (11/24/2017 5:35 PM) Sed Rate 106 (H) <15 mm/Hr BT MAIN-STATION 3 Specimen Blood Performing Organization Address [facility] [place] Phone Number [employer] BT MAIN-STATION 3 * IRON PROFILE (11/24/2017 5:35 PM) Iron 15 (L) 50 - 212 ug/dL BT MAIN-STATION 1 TIBC 161 (L) 250 - 450 ug/dL BT MAIN-STATION 1 % Iron Sat 9 % BT MAIN-STATION 1 Specimen Blood Performing Organization Address City/State/Zipcode Phone Number MISYS BT MAIN-STATION 1 * CT ABDOMEN AND PELVIS CONTRAST (11/23/2017 8:41 PM) Only the most recent of 2 results within the time period is included. Impressions Performed At IMPRESSION: SMS 1. Marginally increased extensive inflammatory changes likely related to perforated diverticulitis of the descending colon, complicated by multiple abscesses, which are not significantly changed. 2. Resultant mild bilateral hydroureteronephrosis related to inflammatory change in the pelvis and reactive thickening of the bladder. If the report is "FINALIZED" it indicates that the attending/staff radiologist has reviewed the images and agrees with the resident's interpretation. Dictated By: Juan José Yañez MD, 11/24/2017 12:15 AM I have reviewed the study and agree with the findings in this report. Signed By: Leyda Ventura MD, 11/24/2017 1:10 AM Narrative Performed At EXAM: CT Abdomen and Pelvis WITH contrast SMS INDICATION: recurrent diverticulitis w sxs c/f crohns COMPARISON: CT of the abdomen and pelvis on 11/22/2017 , 05/12/2012 TECHNIQUE: Abdomen and pelvis were scanned utilizing a multidetector helical scanner from the lung base to the pubic symphysis after administration of IV contrast. Coronal and sagittal reformations were obtained. Routine protocol was performed. Scan was performed when during portal venous phase. IV CONTRAST: 100 mL of Omnipaque 300 ORAL CONTRAST: Gastroview from most recent CT COMPLICATIONS: None RADIATION DOSE: Total DLP: 851 mGy*cm Estimated effective dose: (DLP x 0.015 x size factor) mSv CTDIvol has been reviewed. It is below the limits set by the Radiation Protocol Committee (RPC). FINDINGS: LINES and TUBES: None. LOWER THORAX:Unremarkable HEPATOBILIARY: Enlarged liver measuring 22 cm at the right midclavicular line. No focal hepatic lesions. No biliary ductal dilation. GALLBLADDER: Gallbladder sludge/stones. SPLEEN: Enlarged spleen measures 14.1 cm. PANCREAS: No focal masses or ductal dilatation. ADRENALS: No adrenal nodules KIDNEYS/URETERS: Mild bilateral hydroureteronephrosis, similar to prior. Mild urothelial wall thickening of the distal ureters, likely reactive to ongoing inflammation from the bowel and involvement of bladder. GI TRACT: Contrast now fills the colon. Numerous diverticula are seen, as well as on 05/12/2012 study. Overall, slightly increased extensive mural thickening of the mid to distal descending colon and sigmoid colon and significant pericolonic inflammation to the proximal descending colon. Grossly stable size of the thick-walled complex fluid collection in the left lower pelvis, measuring 4 x 4.8 cm (series 2, image 120). No extraluminal extravasation of oral contrast. Appendix is normal. PELVIC ORGANS/BLADDER: Stable appearance of a collapsed bladder with significant wall thickening and inflammation, particularly at the dome. The fluid collection mentioned above remains inseparable from the bladder dome.Interval resolution of the tiny droplet of air at the bladder dome. LYMPH NODES: Stable mesenteric and left para-aortic/retroperitoneal lymphadenopathy. VESSELS: Unremarkable. PERITONEUM / RETROPERITONEUM: Extensive peritoneal inflammation along the descending colon extending into the pelvis. Grossly stable 4.7 x 4.1 cm mesenteric complex fluid collection in the left lower abdomen (series 2, image 85).Additional abscesses as above and along the undersurface of the left anterior abdominal wall along the descending colon.Several contained areas of extraluminal gas. BONES: Mild multilevel degenerative changes of the spine, worse at L5-S1. SOFT TISSUES: Mild diffuse anasarca. Procedure Note Interface, Rad/Mammog In - 11/24/2017 1:15 AM CDT EXAM: CT Abdomen and Pelvis WITH contrast INDICATION: recurrent diverticulitis w sxs c/f crohns COMPARISON: CT of the abdomen and pelvis on 11/22/2017 , 05/12/2012 TECHNIQUE: Abdomen and pelvis were scanned utilizing a multidetector helical scanner from the lung base to the pubic symphysis after administration of IV contrast. Coronal and sagittal reformations were obtained. Routine protocol was performed. Scan was performed when during portal venous phase. IV CONTRAST: 100 mL of Omnipaque 300 ORAL CONTRAST: Gastroview from most recent CT COMPLICATIONS: None RADIATION DOSE: Total DLP: 851 mGy*cm Estimated effective dose: (DLP x 0.015 x size factor) mSv CTDIvol has been reviewed. It is below the limits set by the Radiation Protocol Committee (RPC). FINDINGS: LINES and TUBES: None. LOWER THORAX: Unremarkable HEPATOBILIARY: Enlarged liver measuring 22 cm at the right midclavicular line. No focal hepatic lesions. No biliary ductal dilation. GALLBLADDER: Gallbladder sludge/stones. SPLEEN: Enlarged spleen measures 14.1 cm. PANCREAS: No focal masses or ductal dilatation. ADRENALS: No adrenal nodules KIDNEYS/URETERS: Mild bilateral hydroureteronephrosis, similar to prior. Mild urothelial wall thickening of the distal ureters, likely reactive to ongoing inflammation from the bowel and involvement of bladder. GI TRACT: Contrast now fills the colon. Numerous diverticula are seen, as well as on 05/12/2012 study. Overall, slightly increased extensive mural thickening of the mid to distal descending colon and sigmoid colon and significant pericolonic inflammation to the proximal descending colon. Grossly stable size of the thick-walled complex fluid collection in the left lower pelvis, measuring 4 x 4.8 cm (series 2, image 120). No extraluminal extravasation of oral contrast. Appendix is normal. PELVIC ORGANS/BLADDER: Stable appearance of a collapsed bladder with significant wall thickening and inflammation, particularly at the dome. The fluid collection mentioned above remains inseparable from the bladder dome. Interval resolution of the tiny droplet of air at the bladder dome. LYMPH NODES: Stable mesenteric and left para-aortic/retroperitoneal lymphadenopathy. VESSELS: Unremarkable. PERITONEUM / RETROPERITONEUM: Extensive peritoneal inflammation along the descending colon extending into the pelvis. Grossly stable 4.7 x 4.1 cm mesenteric complex fluid collection in the left lower abdomen (series 2, image 85). Additional abscesses as above and along the undersurface of the left anterior abdominal wall along the descending colon. Several contained areas of extraluminal gas. BONES: Mild multilevel degenerative changes of the spine, worse at L5-S1. SOFT TISSUES: Mild diffuse anasarca. IMPRESSION IMPRESSION: 1. Marginally increased extensive inflammatory changes likely related to perforated diverticulitis of the descending colon, complicated by multiple abscesses, which are not significantly changed. 2. Resultant mild bilateral hydroureteronephrosis related to inflammatory change in the pelvis and reactive thickening of the bladder. If the report is "FINALIZED" it indicates that the attending/staff radiologist has reviewed the images and agrees with the resident's interpretation. Dictated By: Juan José Yañez MD, 11/24/2017 12:15 AM I have reviewed the study and agree with the findings in this report. Signed By: Leyda Ventura MD, 11/24/2017 1:10 AM Performing Organization Address [facility] Phone Number SMS * XRAY ABDOMEN 1 VIEW (11/23/2017 5:24 AM) Only the most recent of 2 results within the time period is included. Impressions Performed At IMPRESSION: SMS Contrast opacification of the large bowel extending to the proximal descending colon with minimal contrast distally, no significant change compared to 11/22/2017, gas is present within the rectum. Dictated By: Benny Snyder MD, 11/23/2017 10:51 AM I have reviewed the study and agree with the findings in this report. Signed By: Elroy Sullivan MD, 11/23/2017 11:02 AM Narrative Performed At EXAM:XRAY ABDOMEN 1 VIEW SMS INDICATION: Follow transit of contrast COMPARISON:KUB dated 11/22/2017 DISCUSSION: LINES/TUBES: None. BOWEL: Contrast within the large bowel to the level of the proximal descending colon, not significantly changed since prior study on 11/22/2017, minimal contrast is seen distally, however air is present within the rectum.No pneumoperitoneum. Normal amount of stool in the colon. OTHER: No abnormal abdominal calcifications. No mass effect or organomegaly. BONES:Unremarkable. Procedure Note Interface, Rad/Mammog In - 11/23/2017 11:08 AM CDT EXAM: XRAY ABDOMEN 1 VIEW INDICATION: Follow transit of contrast COMPARISON: KUB dated 11/22/2017 DISCUSSION: LINES/TUBES: None. BOWEL: Contrast within the large bowel to the level of the proximal descending colon, not significantly changed since prior study on 11/22/2017, minimal contrast is seen distally, however air is present within the rectum. No pneumoperitoneum. Normal amount of stool in the colon. OTHER: No abnormal abdominal calcifications. No mass effect or organomegaly. BONES: Unremarkable. IMPRESSION IMPRESSION: Contrast opacification of the large bowel extending to the proximal descending colon with minimal contrast distally, no significant change compared to 11/22/2017, gas is present within the rectum. Dictated By: Benny Snyder MD, 11/23/2017 10:51 AM I have reviewed the study and agree with the findings in this report. Signed By: Elroy Sullivan MD, 11/23/2017 11:02 AM Performing Organization Address [facility] Phone Number SMS * CRP, HIGH SENS (11/22/2017 3:40 PM) CRP, high sens >80.000 (H) <1.0 mg/dL BT MAIN-STATION 1 Specimen Blood Performing Organization Address City/[facility] Phone Number MISYS BT MAIN-STATION 1 * URINE CULTURE (11/22/2017 11:31 AM) Spec Description Urine BT MICROBIOLOGY Order Comments None BT MICROBIOLOGY Culture 10,000-100,000 CFU/ml BT MICROBIOLOGY Escherichia coli Mixed uro-genital mannie also present Report Status Final 11/30/2017 BT MICROBIOLOGY Organism 10,000-100,000 CFU/ml BT MICROBIOLOGY Escherichia coli Method ROMINA BT MICROBIOLOGY Amikacin <=8 Susceptible BT MICROBIOLOGY Ampicillin <=4 Susceptible BT MICROBIOLOGY Cefazolin <=1 Susceptible BT MICROBIOLOGY Cefepime <=1 Susceptible BT MICROBIOLOGY Ceftriaxone <=1 Susceptible BT MICROBIOLOGY Ceftazidime <=0.5 Susceptible BT MICROBIOLOGY Ciprofloxacin >2 Resistant BT MICROBIOLOGY Ertapenem <=0.25 Susceptible BT MICROBIOLOGY Gentamicin <=2 Susceptible BT MICROBIOLOGY Meropenem <=0.5 Susceptible BT MICROBIOLOGY Nitrofurantoin <=16 Susceptible BT MICROBIOLOGY Piperacillin/Tazo <=2/4 Susceptible BT MICROBIOLOGY Tobramycin <=2 Susceptible BT MICROBIOLOGY Trimeth-sulfamethox <=0.5/9.5 Susceptible BT MICROBIOLOGY Specimen Urine - URINE Performing Organization Address [facility] Phone Number MISYS BT MICROBIOLOGY * BMP POC (11/21/2017 10:26 PM) CO2 POC 28 21 - 32 mmol/L BT MAIN-STATION 1 Chloride POC 97 (L) 98 - 107 mmol/L BT MAIN-STATION 1 Potassium POC 4.3 3.50 - 5.10 mmol/L BT MAIN-STATION 1 Sodium POC 136 136 - 145 mmol/L BT MAIN-STATION 1 Glucose POC 107 (H) 74 - 106 mg/dL BT MAIN-STATION 1 Urea Nitrogen POC 19 (H) 7 - 18 mg/dL BT MAIN-STATION 1 Creatinine POC 0.9 0.6 - 1.3 mg/dL BT MAIN-STATION 1 Calcium Ionized POC 1.16 1.15 - 1.29 mmol/L BT MAIN-STATION 1 Hemoglobin POC 13.6 (L) 14.0 - 18.0 g/dL BT MAIN-STATION 1 Hematocrit POC 40.0 40.0 - 54.0 % BT MAIN-STATION 1 GFR, Estimated >60 mL/min/1.73 m2 BT MAIN-STATION 1 GFR, Estim, Afr-Am >60 mL/min/1.73 m2 BT MAIN-STATION 1 Performing Organization Address City/State/[facility] Phone Number MISYS BT MAIN-STATION 1 * 12 LEAD EKG (11/21/2017 10:20 PM) 12 LEAD EKG FOR [facility] Test Date:2017-11-21 Pat Name: SHAYAN VELAZQUEZ Department: Room: Gender: M Diabetes Nurse: [id number] :[id number] 05-05 Requested By: Order Number: Ralph hernandez MD: ro[facility]an [facility] Measurements Intervals [place] Rate: 129 P: 43 AR: 148 QRS: -6 QRSD: 97 T:46 QT: 300 QTc:440 Interpretive Statements SINUS TACHYCARDIA ABNORMAL RHYTHM ECG Electronically Signed On 11-21-17 22:26:46 CDT by roldan east Performing Organization Address City/[facility] Phone Number [facility] * HIV-1/HIV-2 ROUTINE SCREENING (11/21/2017 10:19 PM) HIV-1/HIV-2 Negative NEG BT MAIN-STATION 4 Performing Organization Address City/[facility] Phone Number MISYS BT MAIN-STATION 4 * UA CHEMISTRIES (11/21/2017 10:19 PM) Color Yellow BT MAIN-STATION 3 Clarity Hazy BT MAIN-STATION 3 Spec [place] 1.020 1.001 - 1.035 BT MAIN-STATION 3 pH 6.0 5 - 8 BT MAIN-STATION 3 Protein 2+ (A) NEG BT MAIN-STATION 3 Glucose Negative NEG BT MAIN-STATION 3 Ketone Negative NEG BT MAIN-STATION 3 Bilirubin Negative NEG BT MAIN-STATION 3 Nitrate Negative NEG BT MAIN-STATION 3 Urobilinogen 2.0 (H) 0.2 - 1.0 EU/dL BT MAIN-STATION 3 Leukocyte 3+ (A) NEG BT MAIN-STATION 3 Blood 1+ (A) NEG BT MAIN-STATION 3 RBC 27 (H) 0 - 4 /HPF BT MAIN-STATION 3 WBC >182 (H) 0 - 5 /HPF BT MAIN-STATION 3 Mucous Present BT MAIN-STATION 3 Specimen Urine Performing Organization Address City/[facility] Phone Number MISYS BT MAIN-STATION 3 * LIVER PROFILE (11/21/2017 10:19 PM) T Protein 7.7 6.0 - 8.3 g/dL BT MAIN-STATION 1 Albumin 3.9 (L) 4.2 - 5.5 g/dL BT MAIN-STATION 1 T Bilirubin 0.7 0.2 - 1.2 mg/dL BT MAIN-STATION 1 Alk Phos 89 34 - 104 U/L BT MAIN-STATION 1 AST 6 (L) 13 - 39 U/L BT MAIN-STATION 1 ALT 4 (L) 7 - 52 U/L BT MAIN-STATION 1 D Bilirubin 0.2 0.0 - 0.2 mg/dL BT MAIN-STATION 1 Specimen Blood Performing Organization Address City/[facility] Phone Number MISYS BT MAIN-STATION 1 * LIPASE (11/21/2017 10:19 PM) Lipase <3 (L) 11 - 82 U/L BT MAIN-STATION 4 Specimen Blood Performing Organization Address City/[facility] Phone Number MISYS BT MAIN-STATION 4 after 01/16/2017
[2018-01-17] MEDS ORDERED: DIATRIZOATE MEGL/DIATRIZOA SOD 30 ML BTL PO ONE (02:05)
[2018-01-17 02:36] LABS: BASOPHILS % 0.6 % (0.0-1.0); EOSINOPHILS # (AUTO) 0.1 (0.0-0.4); EOSINOPHILS % 1.6 % (0.0-6.0); HEMATOCRIT 33.7 % (38.2-49.6); HEMOGLOBIN 10.7 g/dL (14.0-18.0); LYMPHOCYTES # (AUTO) 1.1 (1.0-3.2); LYMPHOCYTES % 16.2 % (18.0-39.1); MEAN CORPUSCULAR HEMOGLOBIN 25.5 pg (28-32); MEAN CORPUSCULAR HGB CONC 31.8 g/dL (31-35); MEAN CORPUSCULAR VOLUME 80.4 fL (81-99); MONOCYTES # (AUTO) 0.4 (0.2-0.8); MONOCYTES % 5.9 % (4.4-11.3); NEUTROPHILS # (AUTO) 5.2 (2.1-6.9); NEUTROPHILS % 75.1 % (38.7-80.0); PLATELET COUNT 418 x10e3/uL (140-360); RED BLOOD COUNT 4.19 x10e6/uL (4.3-5.7); RED CELL DISTRIBUTION WIDTH 16.1 % (11.7-14.4)
[2018-01-17 02:39] LABS: CLARITY,URINE CLOUDY (CLEAR); COLOR,URINE AMBER (YELLOW)
[2018-01-17 02:40] LABS: AMPHETAMINES SCREEN,URINE NEGATIVE (NEGATIVE); BENZODIAZEPINES SCREEN,URINE NEGATIVE (NEGATIVE); BILIRUBIN,URINE NEGATIVE (NEGATIVE); KETONES,URINE TRACE (NEGATIVE); LEUKOCYTE ESTERASE ,URINE 1+ (NEGATIVE); NITRITE,URINE POSITIVE (NEGATIVE); PHENCYCLIDINE SCREEN,URINE NEGATIVE (NEGATIVE); PROTEIN,URINE DIPSTICK 1+ (NEGATIVE); URINE UROBILINOGEN 0.2 mg/dL (0.2 - 1)
[2018-01-17 02:55] LABS: ALBUMIN 3.3 g/dL (3.5-5.0); ALBUMIN/GLOBULIN RATIO 0.7 (0.8-2.0); ALKALINE PHOSPHATASE 74 IU/L (40-150); ANION GAP 16.1 mmol/L (8-16); BLOOD UREA NITROGEN 9 mg/dL (7-26); BUN/CREATININE RATIO 13 (6-25); CARBON DIOXIDE 24 mmol/L (22-29); CHLORIDE 99 mmol/L (98-107); CREATININE, SERUM 0.69 mg/dL (0.72-1.25); EST GLOMERULAR FILTRATION RATE > 60 ML/MIN (60-); GLUCOSE 134 mg/dL (74-118); LIPASE 9 U/L (8-78); POTASSIUM 3.1 mmol/L (3.5-5.1); SODIUM 136 mmol/L (136-145)
[2018-01-17 03:09] LABS: BACTERIA,URINE MODERATE /HPF; EPITHELIAL CELLS,URINE FEW /LPF; RBC,URINE >50 /HPF (0-5); WBC,URINE (MAN) >50 /HPF (0-5)
[2018-01-17 03:10] LABS: MUCUS,URINE MODERATE (RARE)
[2018-01-17] MEDS ORDERED: ONDANSETRON HCL INJ 2 MG/ML VIAL IV STA (03:11)
[2018-01-17] MEDS ORDERED: AZITHROMYCIN 250 MG TAB PO STA (03:11)
[2018-01-17] MEDS ORDERED: CEFTRIAXONE SOD 250 MG VIAL IM ONE (03:15)
[2018-01-17 03:18] LABS: ALANINE AMINOTRANSFERASE < 6 IU/L (0-55)
[2018-01-17] MEDS ORDERED: SODIUM CHLORIDE 0.9% 50ML 50 ML ONE (03:28)
[2018-01-17] MEDS ORDERED: IOPAMIDOL 370 MG/ML 200 ML INFUS..BTL INJ ONE (03:29)
[2018-01-17] MEDS ORDERED: POTASSIUM CHLORIDE 20 MEQ TAB CR PO STA (04:08)
[2018-01-17] MEDS ORDERED: MORPHINE SULFATE INJ 4 MG/ML INJ IV STA (04:08)
--- NOTE | 2018-01-17 04:24 | Diagnostic Imaging Report ---
EXAM: CT ABDOMEN AND PELVIS with IV CONTRAST INDICATION: Abdominal pain COMPARISON: CT of the abdomen and pelvis October 29, 2017 TECHNIQUE: The abdomen and pelvis were scanned using a multidetector helical scanner. Coronal and sagittal reformations were obtained. Dose modulation, iterative reconstruction, and/or weight based adjustment of the mA/kV was utilized to reduce the radiation dose to as low as reasonably achievable. Routine protocol performed. IV Contrast: 100 cc Isovue-370 Oral Contrast: None FINDINGS: LOWER THORAX: No consolidations LIVER: No masses BILIARY: The gallbladder is unremarkable. No ductal dilation. SPLEEN: No masses PANCREAS: No masses ADRENALS: No nodules KIDNEYS: Symmetric perfusion. No enhancing masses. No hydronephrosis. GI TRACT: Persistent marked inflammation of the sigmoid colon/distal descending colon with fistulous communication to the left transverse abdominis muscle and bladder dome. Moderate distention of the colon proximal to the involved sigmoid colon. VESSELS: Unremarkable PERITONEUM/RETROPERITONEUM: Marked inflammation and trace fluid in the left abdomen and pelvis. LYMPH NODES: No lymphadenopathy REPRODUCTIVE ORGANS: Unremarkable BLADDER: Bladder wall thickening. Abscess involving the bladder dome measuring approximately 3.5cm. SOFT TISSUES: Unremarkable BONES: No suspicious bone lesions. IMPRESSION: Persistent marked inflammation of the sigmoid colon/distal descending colon with fistulous communication to the left transverse abdominis muscle and bladder dome. There is now moderate air distention of the more proximal colon indicating partial large bowel obstruction. Findings are likely secondary to prior diverticulitis with contained rupture. Given chronicity, underlying malignancy should be considered. Signed by: Dr. Norah Marti M.D. on 01/17/2018 4:21 AM
[2018-01-17] MEDS: SODIUM CHLORIDE 0.9% 1000ML 1,000 ML IV SCH ×3 (04:55→20:48)
[2018-01-17] MEDS ORDERED: METRONIDAZOLE 500MG/NS 100ML 100 ML IV SCH (05:00)
[2018-01-17] MEDS ORDERED: CIPROFLOXACIN 400 MG/D5W 200ML 200 ML IV SCH (05:00)
--- OUTSIDE RECORDS SUMMARY | 2018-01-17 05:11 | XMS REPORT | Clinical Summary ---
Author Author [facility] Organization [facility] Address Unknown Phone Unavailable Care Team Providers Care Market Research Lead Name Role Phone PCP Unavailable Allergies No [...] Care Team Description 12/02/2017 Pharmacy Visit 11/22/2017 [facility] Oumar Elizondo MD Left lower quadrant pain [...] General Surgery Oh Nash MD Department of Surgery-[facility] [address] [place] [address] [phone] Kasandra Gutierrez PA [address] [facility] [address] [place] [address] [phone] 02/05/2018 Office Visit Gastroenterology Health Maintenance Due [...] mg/dL BT MAIN-STATION 1 Performing Organization Address [facility] [place] Phone Number MISYS BT MAIN-STATION 1 * PHOSPHORUS (12/01/2017 4:47 AM) Only the most recent of 9 results within the time period is included. Phosphorus 3.9 2.5 - 5.0 mg/dL BT MAIN-STATION 1 Specimen Blood Performing Organization Address [facility] [place] Phone Number MISYS BT MAIN-STATION 1 * MAGNESIUM (12/01/2017 4:47 AM) Only the most recent of 9 results within the time period is included. Magnesium 1.9 1.9 - 2.7 mg/dL BT MAIN-STATION 1 Specimen Blood Performing Organization Address [facility] [place] Phone Number MISYS BT MAIN-STATION 1 * [...] MAIN-STATION 1 Specimen Blood Performing Organization Address [facility] [place] Phone Number MISYS BT MAIN-STATION 1 * PREALBUMIN (11/29/2017 4:50 AM) Only the most recent of 4 results within the time period is included. Prealbumin 14.7 (L) 17 - 34 mg/dL BT MAIN-STATION 1 Performing Organization Address [facility] [place] Phone Number MISYS BT MAIN-STATION 1 * [...] D deficiency has been defined by the [place] of [employer] and Endocrine Society guideline as a level of serum 25-OH Vitamin D less than 20 ng/mL. The Endocrine Society further defines Vitamin D insufficiency as a level between 21 and 29 ng/mL and sufficiency as a level between 30 and 100 ng/mL. Performing Organization Address [facility] [place] [facility] Phone Number [facility] DIAGNOSTIC IMMUNOLOGY * CELIAC DISEASE (11/24/2017 5:35 [...] mg/dL FRANKIE Specimen Blood Performing Organization Address [facility] [place] [facility] Phone Number [facility] [employer] [employer] [facility] [address], [place] [phone] FRANKIE 145 * FERRITIN (11/24/2017 5:35 PM) Ferritin 632.90 (H) 23.9 - 336.2 ng/mL BT MAIN-STATION 1 Specimen Blood Performing Organization Address [facility] Phone Number moziy BT MAIN-STATION 1 * SED RATE (11/24/2017 5:35 PM) Sed Rate 106 (H) <15 mm/Hr BT MAIN-STATION 3 Specimen Blood Performing Organization Address [facility] Phone Number moziy BT MAIN-STATION 3 * IRON PROFILE (11/24/2017 [...] MD, 11/24/2017 1:10 AM Performing Organization Address [facility] Phone Number SMS * XRAY ABDOMEN 1 [...] MD, 11/23/2017 11:02 AM Performing Organization Address [facility] Phone Number SMS * CRP, HIGH SENS (11/22/2017 3:40 PM) CRP, high sens >80.000 (H) <1.0 mg/dL BT MAIN-STATION 1 Specimen Blood Performing Organization Address [place] Phone Number MISYS BT MAIN-STATION 1 * [...] Specimen Urine - URINE Performing Organization Address [facility] Phone Number MISYS BT MICROBIOLOGY * BMP [...] m2 BT MAIN-STATION 1 Performing Organization Address [place] Phone Number MISYS BT MAIN-STATION 1 * 12 LEAD EKG (11/21/2017 10:20 PM) 12 LEAD EKG FOR [facility] Test Date:2017-11-21 Pat Name: SHAYAN VELAZQUEZ Department: Room: Gender: M Monotype Caster: [id number] :1986-0 05-05 Requested By: Order Number: Ralph hernandez MD: [facility]an east Measurements Intervals [place] Rate: 129 P: 43 OR: 148 QRS: -6 QRSD: 97 T:46 QT: 300 QTc:440 Interpretive Statements SINUS TACHYCARDIA ABNORMAL RHYTHM ECG Electronically Signed On 11-21-17 22:26:46 CDT by roldan east Performing Organization Address [place]/[facility] Phone Number [facility] * HIV-1/HIV-2 ROUTINE SCREENING (11/21/2017 10:19 PM) HIV-1/HIV-2 Negative NEG BT MAIN-STATION 4 Performing Organization Address [place]/[facility] Phone Number MISYS BT MAIN-STATION 4 * UA CHEMISTRIES (11/21/2017 10:19 PM) Color Yellow BT MAIN-STATION 3 Clarity Hazy BT MAIN-STATION 3 Spec Crane 1.020 1.001 - 1.035 BT MAIN-STATION 3 [...] MAIN-STATION 3 Specimen Urine Performing Organization Address [place]/[facility] Phone Number MISYS BT MAIN-STATION 3 * [...] MAIN-STATION 1 Specimen Blood Performing Organization Address [place]/[facility] Phone Number MISYS BT MAIN-STATION 1 * LIPASE (11/21/2017 10:19 PM) Lipase <3 (L) 11 - 82 U/L BT MAIN-STATION 4 Specimen Blood Performing Organization Address [place]/[facility] Phone Number MISYS BT MAIN-STATION 4 after 01/16/2017
[2018-01-17] MEDS ORDERED: METOCLOPRAMIDE HCL 10 MG/2ML VIAL IV ONE (05:30)
[2018-01-17] MEDS ORDERED: DIPHENHYDRAMINE HCL INJ 50 MG/ML VIAL IV ONE (05:30)
[2018-01-17] MEDS ORDERED: POTASSIUM CHLORIDE 10MEQ/100ML 100 ML IV STA (06:02)
--- NOTE | 2018-01-17 06:10 | NUR ---
received patient from ER. Patient is aaox4, resp even and unlabored. patient is concern about excessive emesis. Patient denies of abdominal pain at this time. tele in place. IV abx is infusing. oriented to room. call light within reach. instruct to call for assistance. bed low/locked. continue to monitor closely
[2018-01-17 06:38] LABS: CREATINE KINASE MB 0.5 ng/mL (0-5.0)
[2018-01-17 08:00] VITALS: BP_SYST 117; BP_SYST 159; BP_DIAS 101; BP_DIAS 54
[2018-01-17] MEDS: ONDANSETRON HCL INJ 2 MG/ML VIAL IV PRN ×2 (08:31→15:08)
[2018-01-17] MEDS: MORPHINE SULFATE 2 MG/ML SYR IV PRN ×2 (08:31→15:08)
[2018-01-17 09:15] VITALS: BP 159/101
[2018-01-17 12:00] VITALS: BP 162/105
[2018-01-17] MEDS ORDERED: ENALAPRILAT IV INJ 1.25 MG/ML VIAL IV PRN (12:45)
[2018-01-17 14:07] LABS: CREATINE KINASE MB 0.8 ng/mL (0-5.0)
--- NOTE | 2018-01-17 14:09 | History and Physical ---
PRIMARY CARE PROVIDER: At [facility]. CHIEF COMPLAINT: Abdominal pain with nausea, vomiting times 24 hours. HISTORY OF PRESENT ILLNESS: Mr. Velazquez is a 32-year-old gentleman presenting with upper abdominal pain with nausea and vomiting times 24 hours. 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 He refused surgery at that time and insisted on being discharged home on p.o. antibiotics. That was roughly 2 weeks ago. He returns now after having had antibiotics for a week and has gotten worse over the past 24 hours. REVIEW OF SYSTEMS: He denies fever, chills or weight loss. He denies sinus congestion or sore throat. He denies chest pain or palpitations. He denies shortness breath, wheezing or cough. He complains of abdominal pain with nausea, vomiting as noted. He denies dysuria or flank pain. He denies rash or pruritus. He denies joint pain or swelling. He denies headache, vertigo or loss of consciousness. He denies bleeding or bruising. He denies depression, agitation, homicidal or suicidal ideation. PAST MEDICAL HISTORY: Significant for hypertension and previous diverticulitis with perforation. He has no surgical history. HE HAS NO KNOWN DRUG ALLERGIES. He does not smoke. MEDICATIONS: His current medications include Levaquin and Flagyl, which he finished a few days ago. He is on Benicar for blood pressure, 10 mg daily. Phenergan as needed. FAMILY HISTORY: Unremarkable. SOCIAL HISTORY: The patient is . [place] is his primary language. He does not smoke, drink or use illegal drugs, and he is generally independently functioning. PHYSICAL EXAM: PSYCHIATRIC: He is alert and oriented times 3 with normal mood and affect. CONSTITUTIONAL: He has a normal body habitus. Is in no acute distress. VITAL SIGNS: Blood pressure 159/101. Pulse 93 and regular. Respiratory rate 18. O2 sat 93%. Temperature 96.8. HEENT: His head is atraumatic. His eyes are anicteric with clear conjunctivae. Ears and nares are without erythema or discharge. Oropharynx is clear. NECK: Is supple with no mass or thyromegaly. LYMPHATIC SYSTEM: He has no palpable cervical, axillary or inguinal adenopathy. CARDIOVASCULAR: His heart has a regular rate and rhythm without murmur or extra heart sound. He has no carotid bruit. He has no peripheral edema. He has palpable dorsal pedal pulses. RESPIRATORY: Lungs are clear to auscultation and percussion with normal respiratory effort. GASTROINTESTINAL: His abdomen is soft. He is tender in the periumbilical area and the epigastric area as well as the left lower quadrant. He does have some mild guarding and rebound. He has no hepatosplenomegaly or masses palpable, and normal bowel sounds are present. CUTANEOUS: His skin is warm and dry to the touch with no rash or skin breakdown. MUSCULOSKELETAL: His joints are in normal alignment without erythema or swelling. He has no calf tenderness. NEUROLOGIC: Exam is nonfocal with intact cranial nerves and no motor or sensory deficits. 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 He has a distended proximal colon that is suspicious for a partial colonic obstruction. His CBC shows a white count of 6.91 with 75% neutrophils. Hemoglobin 10.7, hematocrit 33.7, platelet count 418,000. Chemistry shows normal electrolytes except for potassium 3.1. CO2 is 24. Creatinine 0.69, BUN 9, for a normal GFR. Calcium is 9.0. Lipase is 9. Transaminases, bilirubin, alk phos are all normal. Troponin 0.007. Lactic acid 7.4, which is normal. IMPRESSION AND PLAN: 1. Acute and chronic sigmoid diverticulitis with perforation. The patient has been placed on IV Zosyn and Flagyl. Surgery has been consulted. He is n.p.o. for possible surgery. 2. Partial large-bowel obstruction. Again, Surgery is consulted. Will do serial KUBs and keep patient n.p.o. 3. Uncontrolled hypertension. Will use IV enalapril for blood pressure control for now since the patient is n.p.o. 4. Urinary tract infection, likely related to the fistula tract to the dome of the bladder. Will again continue IV Zosyn. The urine culture is pending. 5. For prophylaxis, the patient will be on Pepcid for GI prophylaxis and SCDs for DVT prophylaxis. Job#: [id number] EV
[2018-01-17] MEDS: FAMOTIDINE 20 MG/2 ML VIAL IV SCH ×2 (14:55→20:48)
[2018-01-17] MEDS: METRONIDAZOLE 500MG/NS 100ML 100 ML IV SCH ×3 (14:55→20:48)
[2018-01-17] MEDS: PIPER-TAZ 3.375 GM 50 ML IV SCH ×3 (15:08→23:53)
[2018-01-17 16:00] VITALS: BP 161/103
--- NOTE | 2018-01-17 16:55 | NUR ---
patient resting in bed, Alert with no distress, call light in reach, IV fluids on flow
[2018-01-17] MEDS: METOCLOPRAMIDE HCL 10 MG/2ML VIAL IV SCH ×2 (18:33→23:53)
--- NOTE | 2018-01-17 19:20 | NUR ---
received patient. Patient is aaox4, resp even and unlabored. no acute distress noted. Patient denies of abdominal pain at this time. tele in place. IV abx is infusing. call light within reach. instruct to call for assistance. bed low/locked. continue to monitor closely
[2018-01-17 20:00] VITALS: BP 135/88
[2018-01-17 21:12] LABS: CREATINE KINASE MB 0.7 ng/mL (0-5.0)
[2018-01-18] VITALS: BP 138/85
[2018-01-18 04:00] VITALS: BP 149/101
[2018-01-18 05:05] LABS: BASOPHILS # (AUTO) 0.1 (0.0-0.1); BASOPHILS % 0.9 % (0.0-1.0); EOSINOPHILS # (AUTO) 0.1 (0.0-0.4); EOSINOPHILS % 1.1 % (0.0-6.0); HEMATOCRIT 30.6 % (38.2-49.6); HEMOGLOBIN 9.7 g/dL (14.0-18.0); LYMPHOCYTES # (AUTO) 1.6 (1.0-3.2); LYMPHOCYTES % 29.2 % (18.0-39.1); MEAN CORPUSCULAR HEMOGLOBIN 25.8 pg (28-32); MEAN CORPUSCULAR HGB CONC 31.7 g/dL (31-35); MEAN CORPUSCULAR VOLUME 81.4 fL (81-99); MONOCYTES # (AUTO) 0.5 (0.2-0.8); MONOCYTES % 9.1 % (4.4-11.3); NEUTROPHILS # (AUTO) 3.2 (2.1-6.9); NEUTROPHILS % 59.3 % (38.7-80.0); PLATELET COUNT 365 x10e3/uL (140-360); RED BLOOD COUNT 3.76 x10e6/uL (4.3-5.7); RED CELL DISTRIBUTION WIDTH 15.8 % (11.7-14.4)
[2018-01-18 05:20] LABS: ANION GAP 14.5 mmol/L (8-16); BLOOD UREA NITROGEN 5 mg/dL (7-26); BUN/CREATININE RATIO 8 (6-25); CALCIUM 8.5 mg/dL (8.4-10.2); CARBON DIOXIDE 25 mmol/L (22-29); CHLORIDE 105 mmol/L (98-107); CREATININE, SERUM 0.65 mg/dL (0.72-1.25); EST GLOMERULAR FILTRATION RATE > 60 ML/MIN (60-); GLUCOSE 97 mg/dL (74-118); POTASSIUM 3.5 mmol/L (3.5-5.1); SODIUM 141 mmol/L (136-145)
[2018-01-18] MEDS: METOCLOPRAMIDE HCL 10 MG/2ML VIAL IV SCH (05:28)
[2018-01-18] MEDS: PIPER-TAZ 3.375 GM 50 ML IV SCH (05:28)
[2018-01-18] MEDS: SODIUM CHLORIDE 0.9% 1000ML 1,000 ML IV SCH (05:28)
[2018-01-18 05:36] LABS: MAGNESIUM 1.9 MG/DL (1.3-2.1)
--- NOTE | 2018-01-18 05:51 | Diagnostic Imaging Report ---
EXAM: ABDOMEN-1VIEW (KUB), supine INDICATION: Diverticulitis, partial bowel obstruction COMPARISON: None FINDINGS: LINES/TUBES: None BOWEL PATTERN: Persistent partial large bowel obstruction with transition point at the distal descending colon. No dilated loops of small bowel. SOFT TISSUES: No abnormal calcifications. LUNG BASES: No consolidations BONES: No acute findings. IMPRESSION: Persistent partial large bowel obstruction with transition point at the distal descending colon. No dilated loops of small bowel. Signed by: Dr. Norah Marti M.D. on 01/18/2018 5:47 AM
[2018-01-18 05:55] LABS: THYROID STIMULATING HORMONE 0.411 uIU/mL (0.350-4.940)
[2018-01-18] MEDS: METRONIDAZOLE 500MG/NS 100ML 100 ML IV SCH (06:33)
[2018-01-18 07:50] VITALS: BP 134/75
[2018-01-18] MEDS: FAMOTIDINE 20 MG/2 ML VIAL IV SCH (08:43)
[2018-01-18 09:35] VITALS: BP 134/75
--- NOTE | 2018-01-18 10:07 | NUR ---
GAVE PACKET OF INFORMATION WITH [employer] FOR ASSISTANCE WITH LOW TO NO INCOME TO PATIENT. RESOURCES THAT PATIENT MAY BE ABLE TO FOLLOW UP UPON DISCHARGE. PT EDUCATED ON EACH RESOURCE AND UNDERSTANDING HOW TO FOLLOW UP TO SEE IF QUALIFIED FOR EACH RESOURCE. PT STATES STILL HAS PACKET TFROM LAST TIME HE CAME, I ASKED IF HE HAD FOLLOWED UP ON ANY RESOURCES AND HE STATED NO.
--- NOTE | 2018-01-18 11:23 | NUR ---
Patient left AMA states he will be going to [facility] from here. AMA form signed. Rosetta MARTINEZ and made aware. PIV removed with tip intact. monitor and storage bin tender removed.
--- NOTE | 2018-01-18 11:39 | NUR ---
Pt left hospital AMA.
--- NOTE | 2018-01-19 05:19 | Discharge Summary ---
ADMISSION DIAGNOSES 1. Ntahz-[id number]-jauebzy sigmoid diverticulitis with perforation. 2. Partial large bowel obstruction. 3. Uncontrolled hypertension. 4. Urinary tract infection. DISCHARGE DIAGNOSES 1. Klrra-ef-ieqjqbz sigmoid diverticulitis with perforation. 2. Partial large bowel obstruction. 3. Uncontrolled hypertension. 4. Urinary tract infection. 5. Anemia, microcytic. MEDICAL HISTORY: The patient has a history of hypertension, previous diverticulitis with perforation. SURGICAL HISTORY: Patient denies surgical history. FAMILY HISTORY: Unremarkable. SOCIAL HISTORY: The patient denies alcohol, tobacco, and illicit drug use, although his urine drug screen came back positive for cannabis. HOSPITAL COURSE: A 32-year-old male presents with upper abdominal pain with nausea and vomiting for 24 hours. He was recently admitted 2 weeks previous with acute sigmoid and descending diverticulitis with fistula into the transverse abdominal muscles and dome of the bladder. He refused surgery at that time and insisted on being discharged home on p.o. antibiotics. Almost 2 weeks later, he returned after having had antibiotics for a week and has gotten worse over the past 24 hours. On admission, he was started on Zosyn and Flagyl and surgery was consulted. CT of the abdomen showed persistent marked inflammation of the sigmoid colon/distal descending colon and fistulous communication to the left transverse abdominis muscle and bladder dome. There is now moderate air distention of the more proximal colon indicating partial large bowel obstruction. Findings are likely secondary to prior diverticulitis, which contained rupture. Given underlying malignancy should be considered. The next day after admission, a KUB showed persistent partial large bowel obstruction with transition point at the distal descending colon. No dilated loops of small bowel. Urine culture came back positive for gram-negative rods. After speaking with the patient the day after discharge, the patient has decided that he wants to go AMA and go to [facility] as all of his doctors are at [facility] and he would rather go there. We asked whey he did not go there in the first place, he said that the pain got so bad at 1:30 in the morning and he did not want to have his drop him off at [facility] all the way downtown as he lives much closer to [facility]. All the risks were discussed with the patient, he accepts the responsibility and so he will be discharged home. Surgeon was consulted to speak with the patient who was in surgery on another patient. He says that the patient wants to go AMA that is his choice as he is noncompliant. Vital signs were stable. The patient was afebrile. He will leave AMA and was instructed to go straight to [facility]. Dictated by: Rosetta Whelan NP Job#: [id number] FREEMAN
[2018-01-19] MEDS ORDERED: AMLODIPINE BESYLATE 10 MG TAB PO SCH (09:00)
== END 2018-01-18 11:20 | disposition home or self-care (01) | DRG 392 ==
LOC: ER 01:52 → ERHOLD 05:08 → MED/SURG2 06:15
PROVIDERS: ADMIT Internal Medicine; ATTEND Internal Medicine
DX: K57.20 Diverticulitis of large intestine with perforation and abscess without bleeding (principal); N39.0 Urinary tract infection, site not specified; N32.1 Vesicointestinal fistula; K56.600 Partial intestinal obstruction, unspecified as to cause; I10 Essential (primary) hypertension; D64.9 Anemia, unspecified; B96.20 Unspecified Escherichia coli [E. coli] as the cause of diseases classified elsewhere
CPT/HCPCS: 36415; 74018; 74177; 80048; 80053; 80307; 81001; 82550; 82553; 83605; 83690; 83735; 83880; 84443; 84484; 85025; 87086; 87186; 99284; J1200; J2270; J2405; J2543; J2765; J3480; J7030; Q9967